=== PATIENT | male | born 1960 | race Caucasian/White ===

== ENCOUNTER 2018-02-08 22:40 | Emergency (ER) | payer OTHER ==
[~2018-02-08] VITALS: Ht 170.2 cm; Wt 130.7 kg
[~2018-02-08 22:40] MED LIST: ADVAIR 250/501 DISK IH; BACLOFEN PO; CLONAZEPAM0.5 MG PO; CYANOCOBALAM1000 MCG PO; CYMBALTA; CYMBALTA20 MG PO; CYMBALTA60 MG PO; DAILY VALUE1 EACH PO; ENDOCET 10-3251 EACH PO; FLONASE16 G1 BOTH NARES; FLORASTOR250 MG PO; INDOCIN SR75 MG PO; KLONOPIN1 MG PO; LAMICTAL100 MG PO; LISINOPRIL10 MG PO; LO-DOSE ASPIRIN81 M1 PO; LYRICA PO; LYRICA200 MG PO; LYRICA25 MG PO; Lioresal PO; MINIPRESS1 MG PO; MORPHINE; NABUMETONE750 MG PO; NIZORAL 2% CREA15 GM TP; ONE-A-DAY MEN'1 EAC1 PO; OXYCODONE HCL10 MG PO; OXYCONTIN10 MG PO; PERCOCET 7.51 TABLET PO; PROAIR HFA8.5 GM IH; PROVIGIL200 MG PO; Proventil,Ventolin H IH; ROBAXIN PO; ROBAXIN500 MG PO; ROBAXIN750 MG PO; Relafen PO; SPIRIVA1 INHALATI IH; SSD25GM TP; SYMBICORT60 INHALAT IH; VENTOLIN HFA18 GM IH; VICOPROFEN1 TABLET PO; VIIBRYD40 MG PO; VISTARIL50 MG PO; ZANAFLEX4 M1 PO; ZANAFLEX4 MG PO; ZITHROMAX500 MG PO; [UNRECOGNIZED DRUG - CODE] IV
[2018-02-08 23:44] LABS: CHLORIDE 101 mEq/L (99-109); POTASSIUM 4.7 mEq/L (3.7-5.4); SODIUM 141 mEq/L (136-147)
[2018-02-08 23:46] LABS: GLUCOSE 93 mg/dL (70-99)
[2018-02-08 23:50] LABS: CREATININE 0.9 mg/dL (0.6-1.3); GFR ESTIMATE (CALCULATED) > 59 mL/min/ (58.99-99999)
[2018-02-08 23:51] LABS: HEMATOCRIT 30.7 % (38.0-50.0); HEMOGLOBIN 9.7 G/DL (12.5-16.6); MCH 26.8 PG (29.0-34.0); MCHC 31.6 G/DL (30.0-36.0); MCV 84.8 FL (86-99); PLATELET COUNT 315 K/uL (156-360); RBC DIS.WIDTH-CV 14.2 % (11.8-14.6); RBC DIS.WIDTH-SD 43.8 % (39-53); RED BLOOD COUNT 3.62 M/uL (4.00-5.50); UREA NITROGEN (BUN) 21 mg/dL (9-23); WHITE BLOOD COUNT 7.4 K/uL (4.1-10.2)
[2018-02-09 01:21] VITALS: BP 138/91
== END 2018-02-09 01:48 | disposition home or self-care (01) ==
LOC: EME 22:40
PROVIDERS: Physician Assistant
DX: L03.116 Cellulitis of left lower limb (principal); M79.7 Fibromyalgia; J44.9 Chronic obstructive pulmonary disease, unspecified; I10 Essential (primary) hypertension; K21.9 Gastro-esophageal reflux disease without esophagitis; I25.2 Old myocardial infarction; F32.9 Major depressive disorder, single episode, unspecified; F31.9 Bipolar disorder, unspecified; F41.9 Anxiety disorder, unspecified; Z87.891 Personal history of nicotine dependence
CPT/HCPCS: 80048; 85027; 93971; 99281; 99285; J0696